=== PATIENT | female | born 1995 ===

== ENCOUNTER 2016-08-14 19:00 | Emergency (ER) | payer MEDICAID ==
[2016-08-14 19:36] LABS: SPECIFIC GRAVITY 1.015 (1.001-1.030); URINE BILIRUBIN NEGATIVE (NEGATIVE); URINE BLOOD NEGATIVE (NEGATIVE); URINE GLUCOSE (UA) NEGATIVE (NEGATIVE); URINE LEUKOCYTE ESTERASE TRACE (NEGATIVE); URINE NITRITE POSITIVE (NEGATIVE); URINE PROTEIN NEGATIVE (NEGATIVE); URINE UROBILINOGEN NORMAL (0-1 mg/dl)
[2016-08-14 19:39] LABS: URINE APPEARANCE SL CLOUDY; URINE COLOR YELLOW
[2016-08-14 19:58] LABS: URINE RBC 0-2 /hpf
[2016-08-14 19:59] LABS: URINE AMORPHOUS SEDIMENT MODERATE; URINE BACTERIA 2+
[2016-08-14 20:18] LABS: ABSOLUTE NEUTROPHIL COUNT 10.2 K/mm3 (1.8-7.7); ALB/GLOB RATIO 1.4 (>1.0); ALBUMIN 4.6 gm/dL (3.5-5.7); BASO # 0.1 K/mm3 (0.0-0.2); BASO % 0.4 % (0.2-1.0); CALCIUM 9.6 mg/dL (8.6-10.3); EOS # 0.1 (0.0-0.5); EOS % 0.6 % (0.9-2.9); HEMATOCRIT 37.9 % (37.0-47.0); IMM NEUT # 0.1 K/mm3 (0-0.2); IMM NEUT% 0.5 % (0-1); LYMPH # 1.2 (1.0-4.8); MEAN CELL VOLUME 88.8 fl (81.0-99.0); MEAN CORPUSCULAR HEMOGLOBIN 30.4 pg (27.0-31.0); MEAN CORPUSCULAR HGB CONC 34.3 g/dl (33.0-37.0); MEAN PLATELET VOLUME 11.3 fl (7.4-10.4); MONO # 0.7 (0.0-0.8); MONO % 5.7 % (4-12); NEUT % 82.8 % (43-75); PLATELET COUNT 254 K/mm3 (130-400); RED CELL DISTRIBUTION WIDTH 13.1 % (11.5-14.5)
[2016-08-14 22:54] LABS: SPECIFIC GRAVITY 1.025 (1.001-1.030); URINE APPEARANCE HAZY; URINE BILIRUBIN NEGATIVE (NEGATIVE); URINE BLOOD 1+ (NEGATIVE); URINE COLOR YELLOW; URINE GLUCOSE (UA) NEGATIVE (NEGATIVE); URINE LEUKOCYTE ESTERASE NEGATIVE (NEGATIVE); URINE NITRITE NEGATIVE (NEGATIVE); URINE PROTEIN NEGATIVE (NEGATIVE); URINE UROBILINOGEN NORMAL (0-1 mg/dl)
[2016-08-14 23:16] LABS: URINE BACTERIA RARE; URINE MUCUS 2+
--- NOTE | 2016-08-15 08:09 | US ---
Exam: Complete obstetric ultrasound less than 14 weeks COMPARISON: None INDICATION: Abdominal pain, elevated WBC. . FINDINGS: Transabdominal and transvaginal obstetric ultrasound less than 14 weeks was obtained. Real-time sonographic imaging demonstrated a single live intrauterine with a heart rate of 150 bpm. Denio-rump length of 1.1 cm correlates with a gestational age of 7 weeks 1 day and a sonographic ESTIVEN of 04/01/2017. This is within 2 days of LMP dating. Normal yolk sac is seen. Gestational sac is normal in size and contour. There is no perigestational hemorrhage. Right ovary measures 1.8 x 1.8 x 1.4 cm and left ovary measures 3.2 x 2.5 x 1.8 cm. There is no cystic or solid ovarian mass. There is no separate adnexal mass. No significant free fluid in cul-de-sac. IMPRESSION: No findings identified to explain abdominal pain. Single live intrauterine of approximately 7 weeks 1 day gestation with a heart rate of 150 bpm. Sonographic ESTIVEN is 04/01/2017. Preliminary report transmitted to the emergency department from [facility] at 2255 hours 08/14/2016.
== END 2016-08-14 22:51 | disposition home or self-care (01) ==
LOC: ED 19:00
DX: O20.0 Threatened abortion (principal); R10.9 Unspecified abdominal pain; Z3A.01 Less than 8 weeks gestation of pregnancy